=== PATIENT | female | born 1940 | race Caucasian/White ===

== ENCOUNTER → 2021-02-03 | Emergency (ER) | payer OTHER ==
[~2021-02-03] VITALS: Ht 152.4 cm; Wt 61.7 kg
[~2021-02-03] MED LIST: AMLODIPINE-OLM1 EACH; DICLOFENAC SODI75 MG PO; TOPROL XL50 M1
== END | disposition home or self-care (01) ==
LOC: ER 20:36
DX: M62.838 Other muscle spasm (principal)